=== PATIENT | female | born 1995 | race Caucasian/White ===

== ENCOUNTER 2020-11-09 00:28 | Emergency (ER) | payer OTHER ==
[~2020-11-09] VITALS: Ht 170.2 cm; Wt 79.8 kg
[~2020-11-09 00:28] MED LIST: FERR325E14 PO; PREN1SGL25 PO
[2020-11-09 00:31] VITALS: BP 106/58
--- NOTE | 2020-11-09 00:35 | NUR ---
COVERING PRIMARY RN FOR LUNCH RELIEF. SEE COMPLETE ASSESSMENT
--- NOTE | 2020-11-09 00:38 | NUR ---
PT TAKEN TO BED 5
--- NOTE | 2020-11-09 00:38 | NUR ---
Dr. Freire examining patient.
[2020-11-09] MEDS ORDERED: ACETAMINOPHEN 325 MG TAB PO ONE (00:45)
[2020-11-09 00:57] LABS: BASOPHILS % (AUTO) 0.5 % (0.0-2.0); EOSINOPHILS # (AUTO) 0.4 K/uL (0-0.4); EOSINOPHILS % (AUTO) 5.1 % (0.0-4.0); HEMATOCRIT 34.8 % (36-48); LYMPHOCYTES # (AUTO) 2.2 K/uL (2.5-16.5); LYMPHOCYTES % (AUTO) 28.5 % (20.5-51.1); MEAN CORPUSCULAR HEMOGLOBIN 31 pg (27-31); MEAN CORPUSCULAR HGB CONC 35 g/dL (33-37); MONOCYTES # (AUTO) 0.6 K/uL (0.8-1.0); MONOCYTES % (AUTO) 7.8 % (1.7-9.3); NEUTROPHILS # (AUTO) 4.6 K/uL (1.8-7.7); NEUTROPHILS % (AUTO) 58.1 % (42.2-75.2); PLATELET COUNT (AUTO) 204 K/uL (140-450); RED BLOOD CELL COUNT(AUTO) 3.87 MIL/uL (4.20-5.40); RED CELL DISTRIBUTION WIDTH 12.6 % (11.6-13.7); WHITE BLOOD COUNT (AUTO) 7.8 K/uL (4.8-10.8)
[2020-11-09 00:59] LABS: APPEARANCE,URINE CLEAR (CLEAR); BILIRUBIN,URINE NEGATIVE (NEGATIVE); BLOOD, URINE 1+ (NEGATIVE); COLOR,URINE YELLOW (YELLOW); LEUKOCYTE ESTERASE ,URINE NEGATIVE (NEGATIVE); NITRITE, URINE NEGATIVE (NEGATIVE); UGLUCOSE NEGATIVE (NEGATIVE)
[2020-11-09 01:06] LABS: RBC,URINE 0-5 /HPF (0-5); WBC,URINE 0-5 /HPF (0-5)
[2020-11-09 01:18] LABS: ANION GAP 10.4 (8-16); CARBON DIOXIDE 27.2 mmol/L (21-32); CREATININE 0.5 mg/dL (0.6-1.3); POTASSIUM 4.6 mmol/L (3.5-5.1); TOTAL BILIRUBIN 0.2 mg/dL (0.0-1.0)
[2020-11-09] MEDS ORDERED: cephALEXin 500 MG CAP PO ONE (01:45)
--- NOTE | 2020-11-09 01:53 | NUR ---
Ultrasound at bedside.
[2020-11-09] MEDS ORDERED: CEPH-588 PO (02:26)
[2020-11-09 02:36] VITALS: BP 106/58
--- NOTE | 2020-11-09 02:37 | NUR ---
Patient discharged with v/s stable. Written and verbal after care instructions given and explained. Patient verbalized understanding. Ambulatory with steady gait. All questions addressed prior to discharge. Advised to follow up with PMD.
== END 2020-11-09 02:37 | disposition home or self-care (01) ==
LOC: MED 00:28
DX: O23.42 Unspecified infection of urinary tract in pregnancy, second trimester (principal); Z3A.17 17 weeks gestation of pregnancy; Z79.899 Other long term (current) drug therapy
CPT/HCPCS: 36415; 76805; 80053; 81001; 81025; 84702; 85025; 87086; 99284

== ENCOUNTER 2021-01-25 11:40 | Observation (INO) | payer OTHER ==
[~2021-01-25] VITALS: Ht 170.2 cm; Wt 82.6 kg
[~2021-01-25 11:40] MED LIST changes: +CEPH-588 PO
[2021-01-25 12:31] VITALS: BP 97/56
[2021-01-25] MEDS ORDERED: cefTRIAXone 1,000 MG VIAL ONE (17:40)
== END 2021-01-25 19:00 | disposition home or self-care (01) ==
LOC: MLD 11:40
PROVIDERS: ADMIT Obstetrics & Gynecology; ATTEND Obstetrics & Gynecology
DX: O26.893 Other specified pregnancy related conditions, third trimester (principal); R10.9 Unspecified abdominal pain; O99.891 Other specified diseases and conditions complicating pregnancy; M54.9 Dorsalgia, unspecified; Z3A.28 28 weeks gestation of pregnancy
CPT/HCPCS: 59025; 76805; 81000; G0378; J0696

== ENCOUNTER 2021-01-26 12:00 | Observation (INO) | payer OTHER ==
[~2021-01-26] VITALS: Ht 167.6 cm; Wt 81.6 kg
[~2021-01-26 12:00] MED LIST changes: -CEPH-588 PO
[2021-01-26 12:29] VITALS: BP 104/55
[2021-01-26] MEDS ORDERED: TERBUTALINE 2.5 MG TAB PO SCH (12:55)
[2021-01-26] MEDS ORDERED: ACETAMINOPHEN 325 MG TAB PO PRN (15:15)
[2021-01-26] MEDS ORDERED: ACETAMINOPHEN 325 MG TAB ONE (15:17)
== END 2021-01-26 18:10 | disposition home or self-care (01) ==
LOC: MLD 12:00
PROVIDERS: ADMIT Obstetrics & Gynecology; ATTEND Obstetrics & Gynecology
DX: O36.8130 Decreased fetal movements, third trimester, not applicable or unspecified (principal); O26.893 Other specified pregnancy related conditions, third trimester; R10.9 Unspecified abdominal pain; O99.891 Other specified diseases and conditions complicating pregnancy; M54.9 Dorsalgia, unspecified; Z3A.28 28 weeks gestation of pregnancy
CPT/HCPCS: 59025; G0378

== ENCOUNTER 2021-02-15 13:01 | Observation (INO) | payer OTHER, SELFPAY ==
[~2021-02-15] VITALS: Ht 170.2 cm; Wt 81.6 kg
--- NOTE | 2021-02-15 16:00 | NUR ---
PATIENT HAS BEEN SCREENED AND CATEGORIZED LOW NUTRITION RISK. PATIENT WILL BE SEEN WITHIN 7 DAYS OF ADMISSION. 02/21/[address] Addendum: 02/15/21 at [address] *CORRECTION PT IS DUE ON 02/22/21
[2021-02-15 17:10] LABS: APPEARANCE,URINE HAZY (CLEAR); BILIRUBIN,URINE NEGATIVE (NEGATIVE); BLOOD, URINE TRACE-I (NEGATIVE); COLOR,URINE YELLOW (YELLOW); LEUKOCYTE ESTERASE ,URINE NEGATIVE (NEGATIVE); NITRITE, URINE NEGATIVE (NEGATIVE); PH,URINE 5.5 (5.0-9.0); UGLUCOSE NEGATIVE (NEGATIVE)
[2021-02-15 17:12] LABS: WBC,URINE 0-5 /HPF (0-5)
[2021-02-15] MEDS ORDERED: AMPICILLIN 2,000 MG in NACL 0.9% 100 ML IV SCH (18:35)
[2021-02-15] MEDS: TERBUTALINE 1 MG/ML VIAL SUBQ SCH ×2 (19:00→19:50)
[2021-02-15] MEDS ORDERED: ZOLPIDEM 5 MG TAB PO SCH (19:20)
[2021-02-15] MEDS ORDERED: AMPICILLIN 2,000 MG VIAL ONE (20:07)
[2021-02-15] MEDS: LACTATED RINGERS 1,000 ML IV SCH (20:10)
[2021-02-15] MEDS ORDERED: NALBUPHINE 10 MG/ML AMP IVP PRN (23:25)
[2021-02-15] MEDS ORDERED: AMPICILLIN 1,000 MG VIAL ONE (23:37)
[2021-02-15] MEDS: AMPICILLIN 1,000 MG in NACL 0.9% 50 ML IV SCH (23:49)
[2021-02-15] MEDS: TERBUTALINE 2.5 MG TAB PO SCH (23:50)
[2021-02-16] MEDS ORDERED: AMPICILLIN 1,000 MG VIAL ONE ×3 (03:26→12:36)
[2021-02-16] MEDS: AMPICILLIN 1,000 MG in NACL 0.9% 50 ML IV SCH ×2 (03:49→12:48)
[2021-02-16] MEDS: LACTATED RINGERS 1,000 ML IV SCH (03:50)
[2021-02-16] MEDS: TERBUTALINE 2.5 MG TAB PO SCH ×2 (06:11→12:11)
== END 2021-02-16 13:45 | disposition home or self-care (01) ==
LOC: MLD 13:01
PROVIDERS: ADMIT Obstetrics & Gynecology; ATTEND Obstetrics & Gynecology
DX: O62.9 Abnormality of forces of labor, unspecified (principal); O26.893 Other specified pregnancy related conditions, third trimester; R51.9 Headache, unspecified; Z20.822 Contact with and (suspected) exposure to COVID-19; Z3A.30 30 weeks gestation of pregnancy; Z79.899 Other long term (current) drug therapy
CPT/HCPCS: 59025; 76805; 76817; 81001; 87086; 87426; 96365; 96366; 96372; 96375; C1758; G0378; J0290; J2300; J3105

== ENCOUNTER 2021-03-04 13:40 | Observation (INO) | payer OTHER, SELFPAY ==
[~2021-03-04] VITALS: Ht 170.2 cm; Wt 85.3 kg
[2021-03-04] MEDS ORDERED: ONDANSETRON 4 MG/2 ML VIAL IVP PRN (14:10)
[2021-03-04 14:48] LABS: ALBUMIN 2.4 g/dL (3.4-5.0); ANION GAP 7.6 (8-16); CARBON DIOXIDE 27.1 mmol/L (21-32); CREATININE 0.6 mg/dL (0.6-1.3); POTASSIUM 3.7 mmol/L (3.5-5.1); TOTAL BILIRUBIN 0.3 mg/dL (0.0-1.0)
[2021-03-04] MEDS ORDERED: PROMETHAZINE 25 MG/ML VIAL IVP PRN (15:20)
[2021-03-04 15:59] LABS: BILIRUBIN,URINE 1+ (NEGATIVE); BLOOD, URINE NEGATIVE (NEGATIVE); COLOR,URINE YELLOW (YELLOW); LEUKOCYTE ESTERASE ,URINE TRACE (NEGATIVE); NITRITE, URINE NEGATIVE (NEGATIVE); PH,URINE 7.5 (5.0-9.0); UGLUCOSE NEGATIVE (NEGATIVE)
[2021-03-04 16:13] LABS: APPEARANCE,URINE HAZY (CLEAR); RBC,URINE NONE SEEN /HPF (0-5); WBC,URINE 0-5 /HPF (0-5)
[2021-03-04] MEDS ORDERED: BETAMETH ACET/BETAMETH NA PH 30 MG/5 ML VIAL IM ONE ×2 (18:40→18:42)
[2021-03-04] MEDS ORDERED: TERBUTALINE 1 MG/ML VIAL SUBQ SCH (18:45)
[2021-03-04] MEDS ORDERED: TERBUTALINE 1 MG/ML VIAL SUBQ ONE (18:46)
[2021-03-04] MEDS ORDERED: ACETAMINOPHEN EXTRA STRENGTH 500 MG TAB PO PRN (20:05)
[2021-03-04] MEDS ORDERED: ZOLPIDEM 5 MG TAB PO ONE (20:05)
[2021-03-04] MEDS ORDERED: BETAMETH ACET/BETAMETH NA PH 30 MG/5 ML VIAL IM SCH (21:00)
[2021-03-05] MEDS: TERBUTALINE 2.5 MG TAB PO SCH ×3 (00:21→11:50)
--- NOTE | 2021-03-05 07:08 | NUR ---
PATIENT HAS BEEN SCREENED AND CATEGORIZED LOW NUTRITION RISK. PATIENT WILL BE SEEN WITHIN 7 DAYS OF ADMISSION. 03/11/21 AVA CONTI MS, RDN
[2021-03-05] MEDS ORDERED: BETAMETH ACET/BETAMETH NA PH 30 MG/5 ML VIAL IM ONE (10:21)
[2021-03-16] MEDS ORDERED: BRE5 PO (00:48)
[2021-03-18] MEDS ORDERED: ACET-9800 PO (14:51)
== END 2021-03-05 15:00 | disposition home or self-care (01) ==
LOC: MLD 13:40
PROVIDERS: ADMIT Obstetrics & Gynecology; ATTEND Obstetrics & Gynecology
DX: O62.9 Abnormality of forces of labor, unspecified (principal); Z20.822 Contact with and (suspected) exposure to COVID-19; Z3A.34 34 weeks gestation of pregnancy; Z79.899 Other long term (current) drug therapy
CPT/HCPCS: 36415; 59025; 76705; 76805; 80053; 81001; 82150; 82731; 87086; 87426; 96372; G0378; J0702; J3105; Q0092